=== PATIENT | female | born 1990 | race Caucasian/White ===

== ENCOUNTER 2017-02-20 15:51 | Emergency (ER) | payer BC, OTHER ==
[2017-02-20 17:15] VITALS: BP 123/77; PULSE 74; RESP 16; TEMP 98.2; O2SAT 96
--- NOTE | 2017-02-20 17:56 | UCPHY ---
H & P Time Seen by Provider: 02/20/17 17:08 Patient Type: Established HPI/ROS: This patient presents with a chief complaint of a headache which she localizes to the left lower occipital area and which has been present for the past 3 days. She has noticed that it is worse when she twists her neck and there is mild photophobia. She denies multiple neurologic symptoms such as numbness, weakness, difficulty walking, difficulty talking or any visual difficulties. The pain does not radiate into the upper back although she does have some left- sided neck stiffness. She denies any cold symptoms such as runny nose, sore throat or ear pain. She has had no fever. The pain is relieved by Tylenol but recheck occurs after 4 hours. She does have a history of migraines but says that this is completely different than her usual ones. The patient had a normal MRI in December of 2015. REVIEW OF SYSTEMS: Constitutional: No fever, no malaise Eyes: No visual difficulties ENT: No nasal congestion, sore throat, no ear pain Respiratory: No cough Cardiac: Not addressed Gastrointestinal: Nausea, denies vomiting, diarrhea or abdominal pain Genitourinary: Not addressed Musculoskeletal: Neck pain without back pain Skin: No rash Neurological: See above Smoking Status: Current every day smoker Physical Exam: GENERAL: Well-appearing, well-nourished and in no acute distress. HEAD: Atraumatic, normocephalic. EYES: Pupils equal round and reactive to light, extraocular movements intact, sclera anicteric, conjunctiva are normal. ENT: TMs normal, nares patent, oropharynx clear without exudates. Moist mucous membranes. NECK: Normal range of motion, supple without lymphadenopathy or JVD. There is tenderness on the left involving the musculature and particularly there is pain along the left occipital ridge EXTREMITIES: Normal range of motion, no pitting or edema. No clubbing or cyanosis. NEUROLOGICAL: Cranial nerves II through XII grossly intact. Normal speech, normal gait. PSYCH: Normal mood, normal affect. SKIN: Warm, dry, normal turgor, no visible rashes or lesions. Constitutional: Initial Vital Signs Temperature (C) 36.8 C 02/20/17 17:12 Heart Rate 74 02/20/17 17:12 Respiratory Rate 16 02/20/17 17:12 Blood Pressure 123/77 H 02/20/17 17:12 O2 Sat (%) 96 02/20/17 17:12 O2 Delivery Mode Room Air Allergies/Adverse Reactions: No Known Allergies Allergy (Verified 02/20/17 17:06) Home Medications: Medication Instructions Recorded Gianvi 3 mg-0.02 mg Tablet 10/25/14 [place] Carbonate 10/25/14 Prazosin HCl 10/25/14 lamOTRIGine [Lamictal] 300 mg PO DAILY #60 tablet 10/25/14 Lurasidone HCl [Latuda] 20 mg PO DAILY 12/04/15 Medical Decision Making Differential Diagnosis: I believe this patient's headache is related to her neck pain and a cervical strain. There is nothing to suggest an intracranial problems such as meningitis , epidural or subdural hematomas, intercerebral bleed or subarachnoid bleed. Departure - Departure Disposition: Home, Routine, Self-Care Clinical Impression: Headache Qualifiers: Headache type: tension-type Headache chronicity pattern: acute headache Intractability: not intractable Qualified Code(s): G44.209 - Tension-type headache, unspecified, not intractable Cervical strain Qualifiers: Encounter type: initial encounter Qualified Code(s): S16.1XXA - Strain of muscle, fascia and tendon at neck level, initial encounter Condition: Good Instructions: General Headache (ED), Cervical Strain (ED) Additional Instructions: If your symptoms have not resolved in 6 or 7 days you should be re-evaluated. If the meantime the character of your headache or neck pain worsen you should be seen sooner. Causes for concern would be increasing pain, fever, vomiting or other worrisome symptoms. Apply heat to the area of pain several times daily. Adult Pain & Fever Control: We recommend Acetaminophen (Tylenol) and Ibuprofen (Motrin, Advil) for pain and fever control. When fever is high or pain severe, both drugs can be used at the same time, but at different intervals. Please note the time differences. Your dose is: Acetaminophen [650]mg every 4 to 6 hours ibuprofen [600]mg every [6] hours with food OR naproxen Sodium (Aleve) [440]mg every 12 hours. Note: do not take Acetaminophen with Hydrocodone (Vicodin, Lortab) or Oxycodone (Percocet). These medications also contain Acetaminophen. No more than 3000 mg of Acetaminophen should be taken in 24 hours (for an adult) . The maximal dose of ibuprofen that it is safe in a 24-hour period is 2400 mg. You may take 400 mg every 4 hours, 600 mg every 6 hours or 800 mg every 8 hours safely. Referrals: MICAELA DE LA TORRE MD [Primary Care Provider] - As per Instructions - PQRS PQRS Measurement: Not applicable
== END 2017-02-20 17:59 | disposition home or self-care (01) ==
LOC: CED 15:51
DX: G44.209 Tension-type headache, unspecified, not intractable (principal); S16.1XXA Strain of muscle, fascia and tendon at neck level, initial encounter; X58.XXXA Exposure to other specified factors, initial encounter
CPT/HCPCS: 99213-PO; G0463-PO